=== PATIENT | male | born 1990 | race Caucasian/White ===

== ENCOUNTER 2016-11-20 21:39 | Emergency (ER) | payer OTHER ==
[~2016-11-20] VITALS: Ht 175.3 cm; Wt 108.5 kg
[2016-11-20 21:44] VITALS: Ht 175.3 cm; Wt 108.5 kg
[2016-11-20] MEDS ORDERED: morphine 4 MG/ML VIAL IV ONE (22:23)
[2016-11-20] MEDS ORDERED: SOD CHLORIDE 0.9% 1,000 ML IV ONE (22:23)
[2016-11-20] MEDS ORDERED: ONDANSETRON 4 MG INJ IV ONE (22:23)
[2016-11-20] MEDS ORDERED: HYDR-902 PO (22:41)
[2016-11-20 23:06] LABS: BASOPHIL # 0.1 10^3/ul (0.0-0.1); BASOPHILS % 0.7 % (0.0-2.0); EOSINOPHILS # 0.2 10^3/ul (0.0-0.5); EOSINOPHILS % 1.8 % (0.0-7.0); HEMATOCRIT 36.1 % (42.0-52.0); HEMOGLOBIN 12.3 g/dl (14.0-18.0); LYMPHOCYTES # 2.2 10^3/ul (0.8-2.9); LYMPHOCYTES % 16.3 % (15.0-51.0); MEAN CORPUSCULAR HEMOGLOBIN 27.1 pg (29.0-33.0); MEAN CORPUSCULAR HGB CONC 34.2 g/dl (32.0-37.0); MEAN CORPUSCULAR VOLUME 79.2 fl (82.0-101.0); MEAN PLATELET VOLUME 7.4 fl (7.4-10.4); MONOCYTES % 7.5 % (0.0-11.0); NEUTROPHIL # 9.7 10^3/ul (1.6-7.5); NEUTROPHILS % 73.7 % (39.0-77.0); PLATELET COUNT 364 10^3/UL (140-440); RED BLOOD COUNT 4.56 10^6/ul (4.70-6.10); RED CELL DISTRIBUTION WIDTH 13.6 % (11.5-14.5); UNCORRECTED WBC 13.2 10^3/ul (4.8-10.8); WHITE BLOOD COUNT 13.2 10^3/ul (4.8-10.8)
[2016-11-20 23:08] LABS: ALBUMIN 3.5 g/dl (3.3-4.9)
[2016-11-20 23:09] LABS: CHLORIDE 99 mmol/L (97-110); POTASSIUM 4.2 mmol/L (3.5-5.1); SODIUM 141 mmol/L (135-144)
[2016-11-20 23:11] LABS: ALBUMIN/GLOBULIN RATIO 1.25; ALKALINE PHOSPHATASE 77 IU/L (42-121); ANION GAP 15 (8-16); ASPARTATE AMINO TRANSFERASE 17 IU/L (15-46); BILIRUBIN,INDIRECT 0.7 mg/dl (0-1.1); BILIRUBIN,TOTAL 0.7 mg/dl (0.2-1.3); CARBON DIOXIDE 31 mmol/L (21-31); CREATININE 0.76 mg/dl (0.61-1.24); TOTAL PROTEIN 6.3 g/dl (6.1-8.1)
[2016-11-20 23:12] LABS: ALANINE AMINOTRANSFERASE 39 IU/L (13-69); BLOOD UREA NITROGEN 16 mg/dl (7-20); CALCIUM 8.8 mg/dl (8.4-10.2); GLUCOSE 96 mg/dl (70-220)
[2016-11-20 23:22] LABS: CONDITION 1; LH ANALYZER COMMENTS 1
[2016-11-20 23:25] LABS: TROPONIN-I < 0.012 ng/ml (0.00-0.12)
--- NOTE | 2016-11-21 00:04 | RADRPT ---
PROCEDURE: CT Head without. CLINICAL INDICATION: Head injury. TECHNIQUE: The study was performed utilizing a multi-slice, multidetector CT scanner. Direct spira l 1 mm axial sections were obtained through the head without the use of intravenous contrast materia l. Coronal and sagittal reformations were obtained. The images were reviewed on a PACS workstation. RADIATION DOSE: CTDIvol: 42.7 mGyDLP: 720.2 mGy-cm COMPARISON: No prior studies are available for comparison. FINDINGS: There is no intracranial hemorrhage, extra-axial fluid collection, mass lesion, midline shift or hyd rocephalus. The ventricles, sulci and cisterns are within normal limits. The white matter is unrem arkable. The olson-white matter differentiation is preserved. The basal cisterns are patent. The m idline structures are intact. There is soft tissue swelling in the frontal region without evidence of underlying calvarial fracture. The orbits are unremarkable. The visualized paranasal sinuses, ma stoid air cells and middle ear cavities are normally aerated. IMPRESSION: 1. No acute intracranial abnormality. No intracranial hemorrhage, extra-axial fluid collection, ma ss lesion or hydrocephalous. 2. Soft tissue swelling in the frontal region without evidence of underlying calvarial fracture. RPTAT: HGAS .Byron King MD, Date Time Electronically viewed and signed by .Byron King MD, MD on 11/21/2016 00:04 .S/
--- NOTE | 2016-11-21 00:51 | RADRPT ---
PROCEDURE: CT Abdomen and pelvis without contrast. CLINICAL INDICATION: Abdominal pain. TECHNIQUE: CT scan of the abdomen and pelvis was performed on the [employer] 6 4 slice VCT scanner. Contiguous axial images using 2.5 mm slice thickness were obtained from the melia ng bases to the ischial tuberosities without intravenous contrast. Coronal and sagittal reformatted images were also obtained. Images were reviewed on the PACS workstation. One or more of the following dose reduction techniques were used: - Automated exposure control. - Adjustment of the mA and/or kV according to patient size. - Use of iterative reconstruction technique. Exam CTD/vol = 22.65 mGy. Total exam DLP = 1562.75 mGy-cm. COMPARISON: None. FINDINGS: Evaluation of the lung bases demonstrates mild bibasilar atelectasis. Abdomen: The liver is normal in size. There is no focal mass or dilatation of the biliary tree. T he gallbladder is not distended. The spleen, pancreas and bilateral adrenal glands are within kush l limits. Bilateral kidneys are normal in size with no contour deforming mass identified. There is no radiopaque renal or ureteral calculus identified. There is no hydronephrosis or hydroureter. T here is no retroperitoneal adenopathy. The abdominal aorta is of normal caliber. There is diffuse subcutaneous stranding within the abdominal wall with bilateral drainage catheters present. There is increased soft tissue and small amount of air within the umbilical region. No di screte fluid collection is identified. There is prior gastric surgery. There is moderate retained stool within the colon. There is no bowel obstruction or free air. A normal appendix is identified . There is no diverticulosis or diverticulitis. There is no ascites. Pelvis: The bladder is unremarkable. The prostate and seminal vesicles are within normal limits. There is no significant pelvic adenopathy or free fluid. Evaluation of the osseous structures demonstrates no suspicious lytic or blastic lesion. IMPRESSION: Diffuse subcutaneous stranding within the abdominal wall. There is increased soft tissue and small amount of air within the umbilical region. No discrete fluid collection is identified. Drainage cat heters are present. Prior gastric surgery. Moderate retained stool within the colon. Mild bibasilar atelectasis. .Carlos Alberto Tijerina MD, MD Date Time Electronically viewed and signed by .Carlos Alberto Tijerina MD, MD on 11/21/2016 00:51 .T/
[2016-11-21] MEDS ORDERED: CEFTRIAXONE 1 GM/50 ML (PMX) 50 ML IVPB ONE (04:00)
[2016-11-21] MEDS ORDERED: VANCOMYCIN 1 GM (PMX) 250 ML IVPB SCH (04:00)
[2016-11-21] MEDS ORDERED: HYDR-906 PO (05:08)
--- NOTE | 2016-11-21 05:37 | ERD ---
ER Documentation Chief Complaint Date/Time DATE: 11/21/16 TIME: 05:31 Chief Complaint sp panniculectomy, leaking fluids from operative site HPI This 26-year-old male presents just over a week after a paniculectomy performed at [facility]. He has surgical drains in place and have been draining clear red fluid. Also noticed he is had some clear whitish discharge from his umbilicus incision as well. Denies any fevers and chills. States that last 2 days. Pain is gotten worse. He has run out of his pain medication. He has no pain when he is not moving but edema is he sometimes has the pain. ROS All systems reviewed and are negative except as per history of present illness. Medications Home Meds Active Scripts Hydrocodone/Acetaminophen (Swisher 5-325 Tablet) 1 Each Tablet, 1 EACH PO Q6, #20 TAB Prov:DERECKBALDEMARMELANIMARIAM CUI 11/21/16 Reported Medications Hydrocodone/Acetaminophen (Swisher 10-325 Tablet) 1 Each Tablet, 1 EACH PO PRN Y for PRN, TAB 11/20/16 Allergies Allergies: Coded Allergies: No Known Allergy (Unverified , 11/20/16) PMhx/Soc History of Surgery: Yes (gastric sleeve 02/26) Anesthesia Reaction: No Hx Neurological Disorder: No Hx Respiratory Disorders: No Hx Cardiac Disorders: Yes (HTN) Hx Psychiatric Problems: No Hx Miscellaneous Medical Probl: No Hx Alcohol Use: Yes (OCCASIONALLY) Hx Substance Use: No Hx Tobacco Use: Yes (1/2 PACK/DAY) Smoking Status: Current every day smoker Physical Exam Vitals Vital Signs Date Time Temp Pulse Resp B/P Pulse Ox O2 Delivery O2 Flow Rate FiO2 11/21/16 04:00 60 18 97/54 100 Room Air 11/21/16 03:00 59 18 122/60 100 Room Air 11/21/16 02:00 58 16 117/57 98 Room Air 11/21/16 01:00 68 18 124/59 97 Room Air 11/21/16 00:00 68 20 131/66 94 Room Air 11/20/16 23:00 70 19 133/64 100 Room Air 11/20/16 21:44 98.5 84 20 142/78 100 Physical Exam Const: [] No distress, talkative, calm Head: Atraumatic Eyes: Normal Conjunctiva ENT: Normal External Ears, Nose and Mouth. Neck: Full range of motion..~ No meningismus. Resp: Clear to auscultation bilaterally Cardio: Regular rate and rhythm, no murmurs Abd: Soft, mild tenderness around incision sites without guarding or rebound , well-healing wounds, mild serous drainage around the umbilical site incision, no calor or significant erythema, non distended. Normal bowel sounds Skin: No petechiae or rashes Back: No midline or flank tenderness Ext: No cyanosis, or edema Neur: Awake and alert and oriented 3, no focal deficits Psych: Normal Mood and Affect Result Diagram: 11/20/16222811/20/162228 Results 24 hrs Laboratory Tests Test 11/20/16 22:29 Alanine Aminotransferase (ALT/SGPT) 39IU/L Albumin 3.5g/dl Albumin/Globulin Ratio 1.25 Alkaline Phosphatase 77IU/L Anion Gap 15 Aspartate Amino Transf (AST/SGOT) 17IU/L Basophils # 0.110^3/ul Basophils % 0.7% Blood Morphology Comment Blood Urea Nitrogen 16mg/dl Calcium Level 8.8mg/dl Carbon Dioxide Level 31mmol/L Chloride Level 99mmol/L Creatinine 0.76mg/dl Direct Bilirubin 0.00mg/dl Eosinophils # 0.210^3/ul Eosinophils % 1.8% Globulin 2.80g/dl Glucose Level 96mg/dl Hematocrit 36.1% Hemoglobin 12.3g/dl Indirect Bilirubin 0.7mg/dl Lactic Acid Level 1.7mmol/L Lipase 62U/L Lymphocytes # 2.210^3/ul Lymphocytes % 16.3% Mean Corpuscular Hemoglobin 27.1pg Mean Corpuscular Hemoglobin Concent 34.2g/dl Mean Corpuscular Volume 79.2fl Mean Platelet Volume 7.4fl Monocytes # 1.010^3/ul Monocytes % 7.5% Neutrophils # 9.710^3/ul Neutrophils % 73.7% Nucleated Red Blood Cells # 0.010^3/ul Nucleated Red Blood Cells % 0.0/100WBC Platelet Count 03658^3/UL Potassium Level 4.2mmol/L Red Blood Count 4.5610^6/ul Red Cell Distribution Width 13.6% Sodium Level 141mmol/L Total Bilirubin 0.7mg/dl Total Protein 6.3g/dl Troponin I < 0.012ng/ml White Blood Count 13.210^3/ul Current Medications Medications (Trade) Dose Ordered Sig/Ghada Route PRN Reason Start Time Stop Time Status Last Admin Dose Admin Sodium Chloride (NS) 1,000 ml @ 1,000 mls/hr Q1H ONCE IV 11/20/16 22:23 11/20/16 23:22 DC 11/20/16 23:10 Morphine Sulfate (morphine) 4 mg ONCE ONCE IV 11/20/16 22:23 11/20/16 22:34 DC 11/20/16 23:00 Ondansetron HCl 4 mg 4 mg ONCE ONCE IV 11/20/16 22:23 11/20/16 22:34 DC 11/20/16 23:00 Ceftriaxone Sodium 50 ml @ 100 mls/hr ONCE ONCE IVPB 11/21/16 04:00 11/21/16 04:29 DC 11/21/16 04:33 Vancomycin HCl (Vancocin) 250 ml @ 125 mls/hr ONCE IVPB 11/21/16 04:00 11/21/16 05:59 11/21/16 05:19 Procedures/MDM [id number] male stable vital signs and postop pain. Fatty infiltration tissue seen on CAT scan could be normal postop changes. White blood cell count 13 V4 also could be reactive and related to recent surgery. He states could also indicate mild infection after surgery at the wound site. Patient did not want to give urine. He was hydrated with liter of normal saline, gave him vancomycin and Rocephin for infection. He has no signs of sepsis is vital signs are completely stable. He was given 4 mg of morphine which took his pain away and was pain-free in emergency room. I do think he should be evaluated by the surgery team the performed the surgery. Patient is not unstable and needed transfer. We both discussed in he agrees to go to the [facility] to see his surgeon today. She will likely go through the emergency room. He also says that he may want to wait until Wednesday but I encouraged him to go sooner for an evaluation by surgery team. CT abdomen and pelvis interpretation: Diffuse subcutaneous fat stranding surrounding follicular to me site incisions, no significant low collection seen. No obstruction, no free air, no bony abnormalities Departure Diagnosis: Primary Impression: Draining postoperative wound Condition: Stable Patient Instructions: Post Op Wound Check, Pain Additional Instructions: [facility].Tell the principal secretary that you were referred from this facility.Call again if your condition worsens before your appointment time. MELANI HARDEN DO Nov 21, 2016 05:37
[2016-11-21 08:15] VITALS: BP 108/67; PULSE 74; RESP 20; TEMP 98.2
== END 2016-11-21 08:16 | disposition home or self-care (01) ==
LOC: E/R 21:39
DX: L76.82 Other postprocedural complications of skin and subcutaneous tissue (principal); F17.210 Nicotine dependence, cigarettes, uncomplicated; I10 Essential (primary) hypertension; G93.89 Other specified disorders of brain; Y62.9 Failure of sterile precautions during unspecified surgical and medical care
CPT/HCPCS: 70450; 74176; 80053; 83605; 83690; 84484; 85025; J0696; J2270; J2405; J3370; J7030; 36415; 93005; 96365; 96366; 96375